=== PATIENT | female | born 1980 | race Caucasian/White ===

== ENCOUNTER 2018-08-27 15:39 | Emergency (ER) | payer BC, MEDICAID ==
[2018-08-27] MEDS ORDERED: LORazepam 1 MG Tab PO ONE (16:24)
--- NOTE | 2018-08-27 16:25 | EDM.PDOC ---
ED HPI GENERAL MEDICAL PROBLEM - General Chief Complaint: Respiratory Problem Stated Complaint: [facility] Time Seen by Provider: 08/27/18 16:24 Source of Information: Reports: Patient History Limitations: Reports: No Limitations - History of Present Illness INITIAL COMMENTS - FREE TEXT/NARRATIVE: HISTORY AND PHYSICAL: History of present illness: Patient is a 38-year-old female here with complaint of possibly panic attack. She states she was at [facility] for a PAP about 30 min prior to arrival to ED when she suddenly got flushed, shaky, lightheaded, and head felt fuzzy. She states it will get better but starts to come back every so often. She states she has had panic attacks in the past that have felt similar, does not take any medication for this. She also states she is an alcoholic but does not think it is withdrawals. She drinks 5oz of vodka per day, sometimes more and her last drink was at midnight last night. She states she normally goes this long without drinking and doesn't have problems. She will occasionally get the shakes if she goes to long without alcohol but denies any alcohol withdrawal seizures. Review of systems: As per history of present illness and below otherwise all systems reviewed and negative. Past medical history: As per history of present illness and as reviewed below otherwise noncontributory. Surgical history: As per history of present illness and as reviewed below otherwise noncontributory. Social history: No reported history of drug or alcohol abuse. Family history: As per history of present illness and as reviewed below otherwise noncontributory. Physical exam: General: Patient sitting comfortably in no acute distress and nontoxic appearing. She is shaky on exam. HEENT: Atraumatic, normocephalic, pupils reactive, negative for conjunctival pallor or scleral icterus, mucous membranes moist, throat clear, neck supple, nontender, trachea midline. No meningeal signs. Lungs: Clear to auscultation, breath sounds equal bilaterally, chest nontender. Heart: S1S2, regular, negative for clicks, rubs, or overt murmur. Abdomen: Soft, nondistended, nontender. Negative for masses or hepatosplenomegaly. Negative for costovertebral tenderness. Pelvis: Stable nontender. Genitourinary: Deferred. Rectal: Deferred. Extremities: Atraumatic, negative for cords or calf pain. Neurovascular unremarkable. Neuro: Awake, alert, oriented. Cranial nerves II through XII unremarkable. Cerebellum unremarkable. Motor and sensory unremarkable throughout. Exam nonfocal. Notes: Patient feeling much better after ativan and requesting to go home. Diagnostics: EKG Declined labs Therapeutics: 1mg Ativan PO Prescriptions: None Impression: Anxiety Plan: 1. Follow up with primary care provider 2. Return to ED as needed as discussed Definitive disposition and diagnosis as appropriate pending reevaluation and review of above. - Related Data Allergies Allergy/AdvReac Type Severity Reaction Status Date / Time Sulfa (Sulfonamide Allergy Other Verified 08/27/18 16:02 Antibiotics) SEASONAL Allergy Sneezing Uncoded 03/12/18 13:04 Home Meds: Home Meds . [No Known Home Meds] 08/27/18 [History] Past Medical History - Past Health History Medical/Surgical History: Denies Medical/Surgical History - Past Surgical History HEENT Surgical History: Reports: Oral Surgery Social & Family History - Family History Family Medical History: Noncontributory - Tobacco Use Smoking Status *Q: Light Tobacco Smoker Years of Tobacco use: 20 Packs/Tins Daily: 0.1 - Alcohol Use Date of Last Drink: 08/26/18 Time of Last Drink: 11:30 - Recreational Drug Use Recreational Drug Use: No ED ROS GENERAL - Review of Systems Review Of Systems: ROS reveals no pertinent complaints other than HPI. ED EXAM, GENERAL - Physical Exam Exam: See Below (see dictation) Course - Vital Signs Last Recorded V/S: Last Vital Signs Temp 97.5 F 08/27/18 15:59 Pulse 101 H 08/27/18 15:59 Resp 22 H 08/27/18 15:59 BP 151/92 H 08/27/18 15:59 Pulse Ox 100 08/27/18 15:59 - Orders/Labs/Meds Meds: Medications Discontinued Medications Generic Name Dose Route Start Last Admin Trade Name Freq PRN Reason Stop Dose Admin Lorazepam 1 mg 08/27/18 16:24 08/27/18 16:44 Ativan PO 08/27/18 16:25 1 mg ONETIME ONE Administration Departure - Departure Time of Disposition: 17:06 Disposition: Home, Self-Care 01 Condition: Good Clinical Impression: Anxiety - Discharge Information Referrals: PCP,None [Primary Care Provider] - Forms: ED Department Discharge Additional Instructions: The following information is given to patients seen in the emergency department who are being discharged to home. This information is to outline your options for follow-up care. We provide all patients seen in our emergency department with a follow-up referral. The need for follow-up, as well as the timing and circumstances, are variable depending upon the specifics of your emergency department visit. If you don't have a primary care physician on staff, we will provide you with a referral. We always advise you to contact your personal physician following an emergency department visit to inform them of the circumstance of the visit and for follow-up with them and/or the need for any referrals to a consulting specialist. The emergency department will also refer you to a specialist when appropriate. This referral assures that you have the opportunity for follow-up care with a specialist. All of these measure are taken in an effort to provide you with optimal care, which includes your follow-up. Under all circumstances we always encourage you to contact your private physician who remains a resource for coordinating your care. When calling for follow-up care, please make the office aware that this follow-up is from your recent emergency room visit. If for any reason you are refused follow-up, please contact the [facility] Emergency Department at and asked to speak to the emergency department charge nurse. [address] [address] [facility] [address] [place] [id number] 1. Follow up with primary care provider 2. Return to ED as needed as discussed
== END 2018-08-27 18:05 | disposition home or self-care (01) ==
LOC: MW.ED 15:39
DX: F41.9 Anxiety disorder, unspecified (principal); F17.210 Nicotine dependence, cigarettes, uncomplicated; Z88.2 Allergy status to sulfonamides; Z91.09 Other allergy status, other than to drugs and biological substances
CPT/HCPCS: 93005; 99283; A9270

== ENCOUNTER 2022-11-28 09:45 | Emergency (ER) | payer MEDICAID | END 2022-11-28 11:10 | disposition home or self-care (01) | LOC: MW.ED 09:45 | DX: F10.10 Alcohol abuse, uncomplicated (principal); J45.909 Unspecified asthma, uncomplicated; Z88.2 Allergy status to sulfonamides; Z91.09 Other allergy status, other than to drugs and biological substances | CPT/HCPCS: 99283; 99284 ==

== ENCOUNTER 2024-11-11 10:03 | Emergency (ER) | payer SELFPAY ==
[2024-11-11] MEDS: EPINEPHrine 1:10,000 1 MG/10 ML Syringe IVPUSH ONE ×4 (10:03→10:06)
[2024-11-11] MEDS: Sodium Bicarbonate 8.4% 50 MEQ/50 ML Syringe IVPUSH ONE (10:03)
[2024-11-11] MEDS: 50% Dextrose in Water 50 ML Syringe IVPUSH ONE (10:04)
== END 2024-11-11 12:05 | disposition expired ==
LOC: MW.ED 10:03
DX: I46.9 Cardiac arrest, cause unspecified (principal); I25.10 Atherosclerotic heart disease of native coronary artery without angina pectoris; I12.9 Hypertensive chronic kidney disease with stage 1 through stage 4 chronic kidney disease, or unspecified chronic kidney disease; N18.9 Chronic kidney disease, unspecified; E11.22 Type 2 diabetes mellitus with diabetic chronic kidney disease; E66.9 Obesity, unspecified; Z79.899 Other long term (current) drug therapy; Z88.2 Allergy status to sulfonamides; Z91.09 Other allergy status, other than to drugs and biological substances
CPT/HCPCS: 36680; 82947; 92950; 96374; 96375; 99285; J0171; 99283; J3490